=== PATIENT | male | born 1945 | race Caucasian/White ===

== ENCOUNTER 2024-09-26 19:12 | Inpatient (IN) | payer OTHER ==
[~2024-09-26 19:12] MED LIST: Iopamidol 370 76% 100 ML VIAL ONE
[2024-09-26 19:45] LABS: #Basophils 0.10 10x3/uL (0.0-0.2); #Eosinophils 0.06 10x3/uL (0.0-0.7); #Monocytes 0.79 10x3/uL (0.11-0.59); #Neutrophils 17.09 10x3/uL (1.40-6.50); %Basophils 0.4 % (0.0-1.0); %Eosinophils 0.3 % (0.0-10.0); %Lymphocytes 19.0 % (21.0-51.0); %Monocytes 3.4 % (0.0-10.0); %Neutrophils 73.8 % (42.0-75.0); Hematocrit 48.3 % (42.0-52.0); Hemoglobin 16.0 g/dL (14.0-18.0); Mean Corpuscular Hemoglobin 29.9 pg (27.0-31.0); Mean Corpuscular Volume 90.3 fL (78.0-98.0); Platelet Count 193 10x3/uL (130-400); Red Blood Cell (RBC) Count 5.35 mill/uL (4.70-6.10); White Blood Cell (WBC) Count 23.16 10x3/uL (4.8-10.8)
[2024-09-26] MEDS ORDERED: Calcium Chloride 1 GM/10 ML Abboject SYRINGE ONE (19:51)
[2024-09-26] MEDS ORDERED: EPINEPHrine 1 MG/10 ML Abboject SYRINGE ONE (19:51)
[2024-09-26] MEDS ORDERED: KETAMINE 100 MG/ML (5ML VIAL) ONE (19:53)
[2024-09-26] MEDS ORDERED: Tranexamic Acid 1,000 MG/10 ML VIAL ONE (19:53)
[2024-09-26] MEDS ORDERED: Rocuronium Bromide 10 MG/ML (10ML VIAL) ONE (19:53)
[2024-09-26 19:59] LABS: ALT (SGPT) 42 U/L (Less than 45); AST (SGOT) 55 U/L (11-34); Albumin 3.6 g/dL (3.1-4.5); Alkaline Phosphatase 85 U/L (40-110); Anion Gap 19 mmol/L (10-20); BUN (Urea Nitrogen) 14 mg/dL (8.4-25.7); Bilirubin, Total 2.1 mg/dL (0.3-1.2); Calc. Creatinine Clearance 0 mL/min (70-130); Calcium 8.4 mg/dL (7.8-10.44); Carbon Dioxide 13 mmol/L (23-31); Chloride 116 mmol/L (98-107); Globulin 3.0 g/dL (2.4-3.5); Glucose 166 mg/dL (83-110); Lipase 32 U/L (8-78); Potassium 4.0 mmol/L (3.5-5.1); Sodium 144 mmol/L (136-145)
[2024-09-26 20:11] LABS: INR-International Normal Ratio 3.2; Prothrombin Time 33.0 sec (12.0-14.7)
[2024-09-26 20:12] LABS: PTT 69.7 sec (22.9-36.1)
[2024-09-26] MEDS ORDERED: Vasopressin In 0.9 % NaCl 100 ML ONE (20:16)
[2024-09-26 20:32] LABS: Actual Bicarbonate (HCO3a) 16.7 mEq/L (22-28); Analyzer IN Cardio ER; Base Excess (BEa) -9.7 mEq/L (-2.0 to +3.0); CO2 Tension 38.2 mmHg (35.0-45.0); Calcium, Ionized (arterial) 0.81 mmol/L (1.12-1.30); Hematocrit-ABG 41 % (42.0-52.0); Hemoglobin (Hb) 14.0 g/dL (14.0-18.0); O2 Tension (PaO2), arterial 261.4 mmHg (> 70.0); Potassium - ABG Lab 3.60 mmol/L (3.70-5.30); pH, Arterial 7.258 (7.35-7.45)
[2024-09-26] MEDS ORDERED: CEFAZOLIN 2 GM VIAL ONE (20:48)
[2024-09-26] MEDS ORDERED: fentaNYL PF 100 MCG/2 ML SYRINGE ONE (20:56)
[2024-09-26] MEDS ORDERED: MINERAL OIL/WHITE PETROLATUM 3.5 GM TUBE ONE (21:31)
[2024-09-26 21:33] LABS: Bacteria/HPF 1+ HPF (None Seen); CAUTI Indications for Culture Urological Procedure; Glucose, Urine (Dipstick) 70 mg/dL (Negative); Leukocyte Negative Leu/uL (Negative); Protein, Urine (Dipstick) 50 mg/dL (Neg-Trace); RBC/HPF Greater than 50 HPF (0-3); Specific Gravity, Urine 1.024 (1.002-1.036)
[2024-09-26 21:34] LABS: Urine Culture Reflex Yes Yes
[2024-09-26 21:41] LABS: Cocaine Metabolite Screen Negative (Negative); THC/Cannabinoid Screen Negative (Negative); Tricyclic Screen Negative (Negative)
[2024-09-26] MEDS ORDERED: Dextrose 50% Abboject 50 ML SYRINGE SLOW IVP PRN (22:17)
[2024-09-26] MEDS ORDERED: Glucagon 1 MG/ML KIT IM PRN (22:17)
[2024-09-26] MEDS ORDERED: Ventilator Sedation Protocol 1 EACH FS SCH (22:30)
[2024-09-26] MEDS ORDERED: DISCONTINUE PREVIOUS NARCOTIC PAIN MEDICATIONS AND BENZODIAZEPINES FS SCH (22:45)
[2024-09-26] MEDS ORDERED: Fentanyl BOLUS 100 ML IVPB PRN (22:45)
[2024-09-26] MEDS ORDERED: Propofol BOLUS 1,000 MG/100 ML VIAL IV PRN (22:45)
[2024-09-26 23:04] VITALS: BMI 24.0
[2024-09-26] MEDS: Sodium Bicarb 50 MEQ/50 ML Abboject 8.4% SYRINGE IVP SCH (23:11)
[2024-09-27] MEDS: NOREPINEPHRINE 8 MG/250 ML-D5W 250 ML IVPB SCH (00:20)
[2024-09-27] MEDS: NOREPINEPHRINE 8 MG/250 ML-D5W 250 ML ONE (00:45)
[2024-09-27 00:58] LABS: ALT (SGPT) 37 U/L (Less than 45); AST (SGOT) 72 U/L (11-34); Albumin 2.6 g/dL (3.1-4.5); Alkaline Phosphatase 52 U/L (40-110); Anion Gap 13 mmol/L (10-20); BUN (Urea Nitrogen) 17 mg/dL (8.4-25.7); Bilirubin, Total 4.8 mg/dL (0.3-1.2); Calc. Creatinine Clearance 40 mL/min (70-130); Calcium 7.5 mg/dL (7.8-10.44); Carbon Dioxide 21 mmol/L (23-31); Chloride 116 mmol/L (98-107); Globulin 2.0 g/dL (2.4-3.5); Glucose 144 mg/dL (83-110); Potassium 3.2 mmol/L (3.5-5.1); Sodium 147 mmol/L (136-145)
[2024-09-27 01:11] LABS: #Basophils 0.05 10x3/uL (0.0-0.2); #Eosinophils Less than 0.03 10x3/uL (0.0-0.7); #Monocytes 1.84 10x3/uL (0.11-0.59); #Neutrophils 13.80 10x3/uL (1.40-6.50); %Basophils 0.3 % (0.0-1.0); %Eosinophils 0.1 % (0.0-10.0); %Lymphocytes 5.9 % (21.0-51.0); %Monocytes 11.0 % (0.0-10.0); %Neutrophils 82.3 % (42.0-75.0); Hematocrit 36.1 % (42.0-52.0); Hemoglobin 12.4 g/dL (14.0-18.0); Mean Corpuscular Hemoglobin 29.2 pg (27.0-31.0); Mean Corpuscular Volume 84.9 fL (78.0-98.0); Platelet Count 137 10x3/uL (130-400); Red Blood Cell (RBC) Count 4.25 mill/uL (4.70-6.10); White Blood Cell (WBC) Count 16.75 10x3/uL (4.8-10.8)
[2024-09-27] MEDS ORDERED: Potassium Chloride 40 MEQ in Premix 1 BAG IVPB SCH (02:45)
[2024-09-27] MEDS: Albumin 25% 25 GM (100 mL) BOT IVPB SCH ×2 (03:00→05:36)
[2024-09-27] MEDS: Potassium Chloride 20 MEQ in Premix 1 BAG IVPB SCH (03:01)
[2024-09-27 04:36] LABS: ALT (SGPT) 38 U/L (Less than 45); AST (SGOT) 77 U/L (11-34); Albumin 3.4 g/dL (3.1-4.5); Alkaline Phosphatase 51 U/L (40-110); Anion Gap 16 mmol/L (10-20); BUN (Urea Nitrogen) 20 mg/dL (8.4-25.7); Bilirubin, Total 5.8 mg/dL (0.3-1.2); Calc. Creatinine Clearance 36 mL/min (70-130); Calcium 7.7 mg/dL (7.8-10.44); Carbon Dioxide 19 mmol/L (23-31); Chloride 115 mmol/L (98-107); Globulin 1.8 g/dL (2.4-3.5); Glucose 175 mg/dL (83-110); Magnesium 1.7 mg/dL (1.6-2.6); Potassium 3.7 mmol/L (3.5-5.1); Sodium 146 mmol/L (136-145)
[2024-09-27 04:48] LABS: INR-International Normal Ratio 1.3; Prothrombin Time 16.5 sec (12.0-14.7)
[2024-09-27 04:49] LABS: PTT 31.6 sec (22.9-36.1)
[2024-09-27 04:54] LABS: #Basophils Less than 0.03 10x3/uL (0.0-0.2); #Eosinophils Less than 0.03 10x3/uL (0.0-0.7); #Monocytes 1.57 10x3/uL (0.11-0.59); #Neutrophils 13.33 10x3/uL (1.40-6.50); %Basophils 0.1 % (0.0-1.0); %Eosinophils 0.1 % (0.0-10.0); %Lymphocytes 4.6 % (21.0-51.0); %Monocytes 10.0 % (0.0-10.0); %Neutrophils 84.6 % (42.0-75.0); Hematocrit 34.7 % (42.0-52.0); Hemoglobin 12.0 g/dL (14.0-18.0); Mean Corpuscular Hemoglobin 29.8 pg (27.0-31.0); Mean Corpuscular Volume 86.1 fL (78.0-98.0); Platelet Count 127 10x3/uL (130-400); Red Blood Cell (RBC) Count 4.03 mill/uL (4.70-6.10); White Blood Cell (WBC) Count 15.74 10x3/uL (4.8-10.8)
[2024-09-27 07:20] LABS: Actual Bicarbonate (HCO3a) 16.6 mEq/L (22-28); Base Excess (BEa) -6.6 mEq/L (-2.0 to +3.0); CO2 Tension 26.0 mmHg (35.0-45.0); Calcium, Ionized (arterial) 1.00 mmol/L (1.12-1.30); Hematocrit-ABG 30 % (42.0-52.0); Hemoglobin (Hb) 10.2 g/dL (14.0-18.0); O2 Tension (PaO2), arterial 85.9 mmHg (> 70.0); Potassium - ABG Lab 3.85 mmol/L (3.70-5.30); pH, Arterial 7.422 (7.35-7.45)
[2024-09-27 07:25] LABS: Puncture Site ARTLINE
[2024-09-27 07:27] LABS: ALV-art Gradient 166.800 mmHg (0-20)
[2024-09-27] MEDS: Vasopressin In 0.9 % NaCl 100 ML IV SCH (08:53)
[2024-09-27] MEDS: Magnesium 2 GM/50 ML(in water) 2 GM in Premix 1 BAG IVPB SCH (08:54)
[2024-09-27] MEDS: Pantoprazole 40 MG VIAL IVP SCH (08:54)
[2024-09-28 06:13] LABS: #Basophils Less than 0.03 10x3/uL (0.0-0.2); #Eosinophils Less than 0.03 10x3/uL (0.0-0.7); #Monocytes 0.42 10x3/uL (0.11-0.59); #Neutrophils 5.48 10x3/uL (1.40-6.50); %Basophils 0.3 % (0.0-1.0); %Eosinophils 0.1 % (0.0-10.0); %Lymphocytes 11.0 % (21.0-51.0); %Monocytes 6.3 % (0.0-10.0); %Neutrophils 81.9 % (42.0-75.0); Hematocrit 31.1 % (42.0-52.0); Hemoglobin 10.2 g/dL (14.0-18.0); Mean Corpuscular Hemoglobin 28.7 pg (27.0-31.0); Mean Corpuscular Volume 87.6 fL (78.0-98.0); Platelet Count 66 10x3/uL (130-400); Red Blood Cell (RBC) Count 3.55 mill/uL (4.70-6.10); White Blood Cell (WBC) Count 6.70 10x3/uL (4.8-10.8)
[2024-09-28 06:23] LABS: Anion Gap 14 mmol/L (10-20); BUN (Urea Nitrogen) 26 mg/dL (8.4-25.7); Calc. Creatinine Clearance 39 mL/min (70-130); Calcium 7.9 mg/dL (7.8-10.44); Carbon Dioxide 23 mmol/L (23-31); Chloride 113 mmol/L (98-107); Glucose 126 mg/dL (83-110); Potassium 4.1 mmol/L (3.5-5.1); Sodium 146 mmol/L (136-145)
[2024-09-28 07:16] LABS: Burr Cells SLIGHT = 2-5 cells HPF (0-1); Nucleated RBC (Manual Ct) 1 % (0); Platelet Adequacy Comment Platelets Decreased; Polychromasia SLIGHT = 2-3 cells HPF (0-2); Schistocytes SLIGHT = 2-5 cells HPF (0-1)
[2024-09-28] MEDS ORDERED: Iopamidol-370 76% 500 ML MDV (1 ML CHARGE) ONE (10:18)
[2024-09-28] MEDS ORDERED: Rocuronium Bromide 10 MG/ML (10ML VIAL) ONE ×2 (11:39)
[2024-09-28] MEDS ORDERED: Bupivacaine 0.25% HCL 30 ML VIAL ONE (11:41)
[2024-09-28 13:14] LABS: ALT (SGPT) 19 U/L (Less than 45); AST (SGOT) 56 U/L (11-34); Albumin 4.0 g/dL (3.1-4.5); Alkaline Phosphatase 37 U/L (40-110); Bilirubin, Direct 1.2 mg/dL (0.1-0.3); Bilirubin, Total 6.0 mg/dL (0.3-1.2)
[2024-09-28 13:52] LABS: INR-International Normal Ratio 1.8; Prothrombin Time 20.8 sec (12.0-14.7)
[2024-09-28 13:53] LABS: PTT 44.8 sec (22.9-36.1)
[2024-09-28 13:58] LABS: Fibrinogen 459 mg/dL (253-463); Fibrinogen 470.0 mg/dL (253-463); INR-International Normal Ratio 1.8; Prothrombin Time 20.6 sec (12.0-14.7)
[2024-09-28 13:59] LABS: D-Dimer Test 3.92 mcg/mL (0.27-0.43)
[2024-09-28 14:15] LABS: Platelet Count 66 10x3/uL (130-400)
[2024-09-28] MEDS ORDERED: Electrolyte Replacement Protocol 1 EACH FS PRN (16:00)
[2024-09-28 16:30] LABS: Osmolality, Urine 483 mOsm/kg (50-1200)
[2024-09-28 20:34] LABS: Hematocrit 25.6 % (42.0-52.0); Hemoglobin 8.0 g/dL (14.0-18.0); Mean Corpuscular Hemoglobin 29.2 pg (27.0-31.0); Mean Corpuscular Volume 93.4 fL (78.0-98.0); Platelet Count 90 10x3/uL (130-400); Red Blood Cell (RBC) Count 2.74 mill/uL (4.70-6.10); White Blood Cell (WBC) Count 6.20 10x3/uL (4.8-10.8)
[2024-09-28 21:42] LABS: Burr Cells MODERATE= 6-15 cells HPF (0-1); Platelet Adequacy Comment Platelets Decreased; Polychromasia SLIGHT = 2-3 cells HPF (0-2); Smudge Cells 3.0 %; Toxic Granulation SLIGHT
[2024-09-29 05:12] LABS: Hematocrit 23.8 % (42.0-52.0); Hemoglobin 7.7 g/dL (14.0-18.0); Mean Corpuscular Hemoglobin 29.3 pg (27.0-31.0); Mean Corpuscular Volume 90.5 fL (78.0-98.0); Platelet Count 86 10x3/uL (130-400); Red Blood Cell (RBC) Count 2.63 mill/uL (4.70-6.10); White Blood Cell (WBC) Count 5.30 10x3/uL (4.8-10.8)
[2024-09-29 05:18] LABS: ALT (SGPT) 9 U/L (Less than 45); AST (SGOT) 42 U/L (11-34); Albumin 3.1 g/dL (3.1-4.5); Alkaline Phosphatase 34 U/L (40-110); Anion Gap 13 mmol/L (10-20); BUN (Urea Nitrogen) 37 mg/dL (8.4-25.7); Bilirubin, Total 5.6 mg/dL (0.3-1.2); Calc. Creatinine Clearance 39 mL/min (70-130); Calcium 7.7 mg/dL (7.8-10.44); Carbon Dioxide 24 mmol/L (23-31); Chloride 112 mmol/L (98-107); Globulin 2.0 g/dL (2.4-3.5); Glucose 95 mg/dL (83-110); Potassium 4.0 mmol/L (3.5-5.1); Sodium 145 mmol/L (136-145)
[2024-09-29 05:44] LABS: Platelet Adequacy Comment Platelets Decreased; RBC Morphology Within Normal Limits; Smudge Cells 1.0 %
[2024-09-29 07:13] LABS: Actual Bicarbonate (HCO3a) 23.1 mEq/L (22-28); Base Excess (BEa) -1.4 mEq/L (-2.0 to +3.0); CO2 Tension 37.2 mmHg (35.0-45.0); Calcium, Ionized (arterial) 1.07 mmol/L (1.12-1.30); Hematocrit-ABG 26 % (42.0-52.0); Hemoglobin (Hb) 8.7 g/dL (14.0-18.0); O2 Tension (PaO2), arterial 61.9 mmHg (> 70.0); Potassium - ABG Lab 4.05 mmol/L (3.70-5.30); pH, Arterial 7.410 (7.35-7.45)
[2024-09-29 07:15] LABS: ALV-art Gradient 176.800 mmHg (0-20); Puncture Site Right Radial artery
[2024-09-29 09:07] LABS: INR-International Normal Ratio 1.7; Prothrombin Time 20.2 sec (12.0-14.7)
[2024-09-29 09:08] LABS: PTT 40.3 sec (22.9-36.1)
[2024-09-29] MEDS ORDERED: fentaNYL PF 100 MCG/2 ML SYRINGE ONE (10:03)
[2024-09-29] MEDS ORDERED: Rocuronium Bromide 10 MG/ML (10ML VIAL) ONE (10:06)
[2024-09-29] MEDS ORDERED: Ondansetron PF 4 MG/2 ML Vial ONE (10:06)
[2024-09-29] MEDS ORDERED: PROPOFOL 20 ML ONE (10:08)
[2024-09-29] MEDS ORDERED: PHENYLEPHRINE-NS 100 MCG/ML 10 ML SYRINGE ONE ×2 (11:28→12:25)
[2024-09-29 21:49] LABS: Hematocrit 24.9 % (42.0-52.0); Hemoglobin 8.1 g/dL (14.0-18.0); Mean Corpuscular Hemoglobin 29.3 pg (27.0-31.0); Mean Corpuscular Volume 90.2 fL (78.0-98.0); Platelet Count 113 10x3/uL (130-400); Red Blood Cell (RBC) Count 2.76 mill/uL (4.70-6.10); White Blood Cell (WBC) Count 5.29 10x3/uL (4.8-10.8)
[2024-09-29 22:24] LABS: Dohle Bodies SLIGHT; Macrocytosis SLIGHT = 6-15 cells HPF (0-5); Platelet Adequacy Comment Platelets Decreased; Poikilocytosis SLIGHT = 6-15 cells HPF (0-5); Polychromasia SLIGHT = 2-3 cells HPF (0-2)
[2024-09-30 05:02] LABS: Hematocrit 24.3 % (42.0-52.0); Hemoglobin 7.8 g/dL (14.0-18.0); Mean Corpuscular Hemoglobin 29.1 pg (27.0-31.0); Mean Corpuscular Volume 90.7 fL (78.0-98.0); Platelet Count 106 10x3/uL (130-400); Red Blood Cell (RBC) Count 2.68 mill/uL (4.70-6.10); White Blood Cell (WBC) Count 5.82 10x3/uL (4.8-10.8)
[2024-09-30 05:16] LABS: ALT (SGPT) 9 U/L (Less than 45); AST (SGOT) 38 U/L (11-34); Albumin 2.5 g/dL (3.1-4.5); Alkaline Phosphatase 36 U/L (40-110); Anion Gap 13 mmol/L (10-20); BUN (Urea Nitrogen) 38 mg/dL (8.4-25.7); Bilirubin, Total 5.8 mg/dL (0.3-1.2); Calc. Creatinine Clearance 45 mL/min (70-130); Calcium 7.6 mg/dL (7.8-10.44); Carbon Dioxide 24 mmol/L (23-31); Chloride 112 mmol/L (98-107); Globulin 2.4 g/dL (2.4-3.5); Glucose 120 mg/dL (83-110); Potassium 4.1 mmol/L (3.5-5.1); Sodium 145 mmol/L (136-145)
[2024-09-30 05:46] LABS: Anisocytosis SLIGHT = 6-15 cells HPF (0-5); Burr Cells SLIGHT = 2-5 cells HPF (0-1); Macrocytosis SLIGHT = 6-15 cells HPF (0-5); Platelet Adequacy Comment Platelets Decreased; Polychromasia SLIGHT = 2-3 cells HPF (0-2)
[2024-09-30] MEDS: Heparin 5,000 UNITS/ML VIAL SC SCH (11:54)
[2024-10-01 05:05] LABS: ALT (SGPT) 10 U/L (Less than 45); AST (SGOT) 39 U/L (11-34); Albumin 2.3 g/dL (3.1-4.5); Alkaline Phosphatase 43 U/L (40-110); Anion Gap 17 mmol/L (10-20); BUN (Urea Nitrogen) 47 mg/dL (8.4-25.7); Bilirubin, Total 6.5 mg/dL (0.3-1.2); Calc. Creatinine Clearance 48 mL/min (70-130); Calcium 7.7 mg/dL (7.8-10.44); Carbon Dioxide 23 mmol/L (23-31); Chloride 113 mmol/L (98-107); Globulin 2.7 g/dL (2.4-3.5); Glucose 119 mg/dL (83-110); Potassium 4.0 mmol/L (3.5-5.1); Sodium 149 mmol/L (136-145)
[2024-10-01 05:07] LABS: Hematocrit 23.9 % (42.0-52.0); Hemoglobin 7.8 g/dL (14.0-18.0); Mean Corpuscular Hemoglobin 29.5 pg (27.0-31.0); Mean Corpuscular Volume 90.5 fL (78.0-98.0); Platelet Count 128 10x3/uL (130-400); Red Blood Cell (RBC) Count 2.64 mill/uL (4.70-6.10); White Blood Cell (WBC) Count 7.85 10x3/uL (4.8-10.8)
[2024-10-01 05:45] LABS: Nucleated RBC (Manual Ct) 1 % (0); Platelet Adequacy Comment Platelets Decreased; RBC Morphology Within Normal Limits; Smudge Cells 1.9 %
[2024-10-01] MEDS: Albumin 25% 25 GM (100 mL) BOT IVPB SCH (09:45)
[2024-10-01] MEDS: hydrALAZINE 20 MG/ML VIAL SLOW IVP PRN (09:46)
[2024-10-01] MEDS: Furosemide 40 MG (4 mL) VIAL SLOW IVP SCH (10:41)
[2024-10-01] MEDS: Magnesium 2 GM/50 ML(in water) 2 GM in Premix 1 BAG IVPB SCH (11:08)
[2024-10-01 15:31] LABS: Anion Gap 17 mmol/L (10-20); BUN (Urea Nitrogen) 50 mg/dL (8.4-25.7); Calc. Creatinine Clearance 44 mL/min (70-130); Calcium 7.8 mg/dL (7.8-10.44); Carbon Dioxide 26 mmol/L (23-31); Chloride 111 mmol/L (98-107); Glucose 126 mg/dL (83-110); Potassium 3.9 mmol/L (3.5-5.1); Sodium 150 mmol/L (136-145)
[2024-10-02 04:28] LABS: Hematocrit 22.3 % (42.0-52.0); Hemoglobin 7.1 g/dL (14.0-18.0); Mean Corpuscular Hemoglobin 28.9 pg (27.0-31.0); Mean Corpuscular Volume 90.7 fL (78.0-98.0); Platelet Count 127 10x3/uL (130-400); Red Blood Cell (RBC) Count 2.46 mill/uL (4.70-6.10); White Blood Cell (WBC) Count 7.04 10x3/uL (4.8-10.8)
[2024-10-02 04:51] LABS: ALT (SGPT) 10 U/L (Less than 45); AST (SGOT) 38 U/L (11-34); Albumin 2.9 g/dL (3.1-4.5); Alkaline Phosphatase 41 U/L (40-110); Anion Gap 14 mmol/L (10-20); BUN (Urea Nitrogen) 51 mg/dL (8.4-25.7); Bilirubin, Total 7.5 mg/dL (0.3-1.2); Calc. Creatinine Clearance 44 mL/min (70-130); Calcium 7.8 mg/dL (7.8-10.44); Carbon Dioxide 26 mmol/L (23-31); Chloride 112 mmol/L (98-107); Globulin 2.5 g/dL (2.4-3.5); Glucose 119 mg/dL (83-110); Potassium 3.8 mmol/L (3.5-5.1); Sodium 148 mmol/L (136-145)
[2024-10-02 04:52] LABS: Anisocytosis SLIGHT = 6-15 cells HPF (0-5); Nucleated RBC (Manual Ct) 1 % (0); Platelet Adequacy Comment Platelets Decreased; Polychromasia SLIGHT = 2-3 cells HPF (0-2)
[2024-10-02] MEDS: Heparin 5,000 UNITS/ML VIAL SC SCH (10:55)
[2024-10-02 18:41] LABS: Hematocrit 25.8 % (42.0-52.0); Hemoglobin 8.4 g/dL (14.0-18.0)
[2024-10-03 04:29] LABS: Hematocrit 27.8 % (42.0-52.0); Hemoglobin 9.1 g/dL (14.0-18.0); Mean Corpuscular Hemoglobin 28.9 pg (27.0-31.0); Mean Corpuscular Volume 88.3 fL (78.0-98.0); Platelet Count 147 10x3/uL (130-400); Red Blood Cell (RBC) Count 3.15 mill/uL (4.70-6.10); White Blood Cell (WBC) Count 10.97 10x3/uL (4.8-10.8)
[2024-10-03 04:45] LABS: ALT (SGPT) 15 U/L (Less than 45); AST (SGOT) 46 U/L (11-34); Albumin 2.7 g/dL (3.1-4.5); Alkaline Phosphatase 63 U/L (40-110); Anion Gap 16 mmol/L (10-20); BUN (Urea Nitrogen) 44 mg/dL (8.4-25.7); Bilirubin, Total 9.0 mg/dL (0.3-1.2); Calc. Creatinine Clearance 52 mL/min (70-130); Calcium 7.5 mg/dL (7.8-10.44); Carbon Dioxide 24 mmol/L (23-31); Chloride 116 mmol/L (98-107); Globulin 2.5 g/dL (2.4-3.5); Glucose 119 mg/dL (83-110); Potassium 3.6 mmol/L (3.5-5.1); Sodium 152 mmol/L (136-145)
[2024-10-03 05:06] LABS: Nucleated RBC (Manual Ct) 2 % (0); Platelet Adequacy Comment Platelets Normal; Polychromasia SLIGHT = 2-3 cells HPF (0-2); Smudge Cells 7.0 %
[2024-10-03] MEDS: Ondansetron PF 4 MG/2 ML Vial IVP PRN (16:00)
[2024-10-03] MEDS: Acetaminophen 325 MG TAB PO PRN (16:07)
[2024-10-03] MEDS: NOREPINEPHRINE 8 MG/250 ML-D5W 250 ML IVPB SCH (19:24)
[2024-10-04 00:20] LABS: #Basophils 0.09 10x3/uL (0.0-0.2); #Eosinophils Less than 0.03 10x3/uL (0.0-0.7); #Monocytes 1.21 10x3/uL (0.11-0.59); #Neutrophils 17.40 10x3/uL (1.40-6.50); %Basophils 0.4 % (0.0-1.0); %Eosinophils 0.0 % (0.0-10.0); %Lymphocytes 3.9 % (21.0-51.0); %Monocytes 5.9 % (0.0-10.0); %Neutrophils 85.4 % (42.0-75.0); Hematocrit 33.1 % (42.0-52.0); Hemoglobin 10.6 g/dL (14.0-18.0); Mean Corpuscular Hemoglobin 28.5 pg (27.0-31.0); Mean Corpuscular Volume 89.0 fL (78.0-98.0); Platelet Count 233 10x3/uL (130-400); Red Blood Cell (RBC) Count 3.72 mill/uL (4.70-6.10); White Blood Cell (WBC) Count 20.40 10x3/uL (4.8-10.8)
[2024-10-04] MEDS: D5 LR w/20 mEq KCL 1,000 ML IV SCH (00:41)
[2024-10-04 00:43] LABS: ALT (SGPT) 22 U/L (Less than 45); AST (SGOT) 62 U/L (11-34); Albumin 2.3 g/dL (3.1-4.5); Alkaline Phosphatase 70 U/L (40-110); Anion Gap 21 mmol/L (10-20); BUN (Urea Nitrogen) 71 mg/dL (8.4-25.7); Bilirubin, Total 10.0 mg/dL (0.3-1.2); Calc. Creatinine Clearance 34 mL/min (70-130); Calcium 7.5 mg/dL (7.8-10.44); Carbon Dioxide 21 mmol/L (23-31); Chloride 114 mmol/L (98-107); Globulin 3.1 g/dL (2.4-3.5); Glucose 154 mg/dL (83-110); Potassium 4.6 mmol/L (3.5-5.1); Sodium 151 mmol/L (136-145)
[2024-10-04] MEDS: Vasopressin In 0.9 % NaCl 40 UNIT in Premix 1 BAG IV SCH (01:53)
[2024-10-04] MEDS: Vasopressin In 0.9 % NaCl 100 ML ONE (01:53)
[2024-10-04 04:41] LABS: Hematocrit 30.8 % (42.0-52.0); Hemoglobin 9.9 g/dL (14.0-18.0); Mean Corpuscular Hemoglobin 28.4 pg (27.0-31.0); Mean Corpuscular Volume 88.3 fL (78.0-98.0); Platelet Count 176 10x3/uL (130-400); Red Blood Cell (RBC) Count 3.49 mill/uL (4.70-6.10); White Blood Cell (WBC) Count 19.14 10x3/uL (4.8-10.8)
[2024-10-04 05:02] LABS: ALT (SGPT) 22 U/L (Less than 45); AST (SGOT) 60 U/L (11-34); Albumin 2.1 g/dL (3.1-4.5); Alkaline Phosphatase 62 U/L (40-110); Anion Gap 18 mmol/L (10-20); BUN (Urea Nitrogen) 71 mg/dL (8.4-25.7); Bilirubin, Total 9.8 mg/dL (0.3-1.2); Calc. Creatinine Clearance 36 mL/min (70-130); Calcium 7.2 mg/dL (7.8-10.44); Carbon Dioxide 21 mmol/L (23-31); Chloride 114 mmol/L (98-107); Globulin 2.7 g/dL (2.4-3.5); Glucose 184 mg/dL (83-110); Potassium 4.6 mmol/L (3.5-5.1); Sodium 148 mmol/L (136-145)
[2024-10-04 05:09] LABS: Anisocytosis SLIGHT = 6-15 cells HPF (0-5); Platelet Adequacy Comment Platelets Normal; Polychromasia SLIGHT = 2-3 cells HPF (0-2)
[2024-10-04] MEDS: Pantoprazole 40 MG VIAL IVP SCH (09:43)
[2024-10-04] MEDS: Albumin 25% 25 GM (100 mL) BOT IVPB SCH (11:33)
[2024-10-05 05:09] LABS: ALT (SGPT) 13 U/L (Less than 45); AST (SGOT) 31 U/L (11-34); Albumin 3.4 g/dL (3.1-4.5); Alkaline Phosphatase 39 U/L (40-110); Anion Gap 19 mmol/L (10-20); BUN (Urea Nitrogen) 75 mg/dL (8.4-25.7); Bilirubin, Total 9.1 mg/dL (0.3-1.2); Calc. Creatinine Clearance 33 mL/min (70-130); Calcium 6.6 mg/dL (7.8-10.44); Carbon Dioxide 19 mmol/L (23-31); Chloride 110 mmol/L (98-107); Globulin 2.1 g/dL (2.4-3.5); Glucose 217 mg/dL (83-110); Potassium 4.0 mmol/L (3.5-5.1); Sodium 144 mmol/L (136-145)
[2024-10-05] MEDS: Calcium Chloride 1 GM/10 ML Abboject SYRINGE IVP SCH (06:37)
[2024-10-05 08:40] LABS: #Basophils Less than 0.03 10x3/uL (0.0-0.2); #Eosinophils 0.09 10x3/uL (0.0-0.7); #Monocytes 0.45 10x3/uL (0.11-0.59); #Neutrophils 8.34 10x3/uL (1.40-6.50); %Basophils 0.2 % (0.0-1.0); %Eosinophils 0.9 % (0.0-10.0); %Lymphocytes 7.6 % (21.0-51.0); %Monocytes 4.6 % (0.0-10.0); %Neutrophils 85.1 % (42.0-75.0); Hematocrit 22.1 % (42.0-52.0); Hemoglobin 7.3 g/dL (14.0-18.0); Mean Corpuscular Hemoglobin 29.6 pg (27.0-31.0); Mean Corpuscular Volume 89.5 fL (78.0-98.0); Platelet Count 122 10x3/uL (130-400); Red Blood Cell (RBC) Count 2.47 mill/uL (4.70-6.10); White Blood Cell (WBC) Count 9.80 10x3/uL (4.8-10.8)
[2024-10-05 10:40] LABS: Anisocytosis SLIGHT = 6-15 cells HPF (0-5); Burr Cells MODERATE= 6-15 cells HPF (0-1); Platelet Adequacy Comment Platelets Decreased; Polychromasia SLIGHT = 2-3 cells HPF (0-2); Schistocytes SLIGHT = 2-5 cells HPF (0-1); Smudge Cells 1.0 %; Toxic Granulation SLIGHT
[2024-10-06 04:22] LABS: #Basophils 0.04 10x3/uL (0.0-0.2); #Eosinophils 0.11 10x3/uL (0.0-0.7); #Monocytes 0.51 10x3/uL (0.11-0.59); #Neutrophils 11.36 10x3/uL (1.40-6.50); %Basophils 0.3 % (0.0-1.0); %Eosinophils 0.9 % (0.0-10.0); %Lymphocytes 3.7 % (21.0-51.0); %Monocytes 4.0 % (0.0-10.0); %Neutrophils 89.2 % (42.0-75.0); Hematocrit 25.7 % (42.0-52.0); Hemoglobin 8.1 g/dL (14.0-18.0); Mean Corpuscular Hemoglobin 28.7 pg (27.0-31.0); Mean Corpuscular Volume 91.1 fL (78.0-98.0); Platelet Count 140 10x3/uL (130-400); Red Blood Cell (RBC) Count 2.82 mill/uL (4.70-6.10); White Blood Cell (WBC) Count 12.73 10x3/uL (4.8-10.8)
[2024-10-06 04:46] LABS: ALT (SGPT) 13 U/L (Less than 45); AST (SGOT) 39 U/L (11-34); Albumin 2.6 g/dL (3.1-4.5); Alkaline Phosphatase 54 U/L (40-110); Anion Gap 16 mmol/L (10-20); BUN (Urea Nitrogen) 80 mg/dL (8.4-25.7); Bilirubin, Total 10.2 mg/dL (0.3-1.2); Calc. Creatinine Clearance 32 mL/min (70-130); Calcium 7.5 mg/dL (7.8-10.44); Carbon Dioxide 22 mmol/L (23-31); Chloride 114 mmol/L (98-107); Globulin 2.4 g/dL (2.4-3.5); Glucose 126 mg/dL (83-110); Potassium 4.0 mmol/L (3.5-5.1); Sodium 148 mmol/L (136-145)
[2024-10-06] MEDS ORDERED: MD-Gastroview 120 ML BOT ONE (11:25)
[2024-10-06] MEDS: Midazolam In 0.9 % NaCl/PF 100 ML IVPB SCH (15:32)
[2024-10-07 04:22] LABS: #Basophils Less than 0.03 10x3/uL (0.0-0.2); #Eosinophils 0.06 10x3/uL (0.0-0.7); #Monocytes 0.52 10x3/uL (0.11-0.59); #Neutrophils 10.16 10x3/uL (1.40-6.50); %Basophils 0.2 % (0.0-1.0); %Eosinophils 0.5 % (0.0-10.0); %Lymphocytes 4.7 % (21.0-51.0); %Monocytes 4.5 % (0.0-10.0); %Neutrophils 88.6 % (42.0-75.0); Hematocrit 25.8 % (42.0-52.0); Hemoglobin 8.5 g/dL (14.0-18.0); Mean Corpuscular Hemoglobin 29.3 pg (27.0-31.0); Mean Corpuscular Volume 89.0 fL (78.0-98.0); Platelet Count 187 10x3/uL (130-400); Red Blood Cell (RBC) Count 2.90 mill/uL (4.70-6.10); White Blood Cell (WBC) Count 11.47 10x3/uL (4.8-10.8)
[2024-10-07 04:40] LABS: ALT (SGPT) 31 U/L (Less than 45); AST (SGOT) 78 U/L (11-34); Albumin 2.1 g/dL (3.1-4.5); Alkaline Phosphatase 58 U/L (40-110); Anion Gap 16 mmol/L (10-20); BUN (Urea Nitrogen) 76 mg/dL (8.4-25.7); Bilirubin, Total 11.1 mg/dL (0.3-1.2); Calc. Creatinine Clearance 34 mL/min (70-130); Calcium 7.4 mg/dL (7.8-10.44); Carbon Dioxide 21 mmol/L (23-31); Chloride 119 mmol/L (98-107); Globulin 2.7 g/dL (2.4-3.5); Glucose 112 mg/dL (83-110); Potassium 3.8 mmol/L (3.5-5.1); Sodium 152 mmol/L (136-145)
[2024-10-07] MEDS ORDERED: Fentanyl BOLUS 100 ML IVPB PRN (06:09)
[2024-10-07 06:52] VITALS: BP 83/59
[2024-10-07] MEDS ORDERED: fentaNYL PF 100 MCG/2 ML SYRINGE ONE (11:44)
[2024-10-07] MEDS ORDERED: Rocuronium Bromide 10 MG/ML (10ML VIAL) ONE (11:44)
[2024-10-07] MEDS ORDERED: Bupivacaine 0.25% HCL 30 ML VIAL ONE (12:09)
[2024-10-07 13:33] LABS: INR-International Normal Ratio 1.3; PTT 34.9 sec (22.9-36.1); Prothrombin Time 16.1 sec (12.0-14.7)
[2024-10-07] MEDS ORDERED: Phenylephrine 40 MG/NS 250 ML 250 ML ONE (15:15)
[2024-10-07 17:22] VITALS: BMI 27.3
[2024-10-07] MEDS: Metoclopramide HCl 10 MG (2 mL) VIAL IVP SCH (21:03)
[2024-10-08] MEDS: Albumin 25% 25 GM (100 mL) BOT IVPB SCH (00:33)
[2024-10-08] MEDS: Phenylephrine 40 MG/NS 250 ML 40 MG in Premix 1 BAG IVPB SCH (02:28)
[2024-10-08 05:07] LABS: #Basophils 0.07 10x3/uL (0.0-0.2); #Eosinophils Less than 0.03 10x3/uL (0.0-0.7); #Monocytes 1.20 10x3/uL (0.11-0.59); #Neutrophils 15.95 10x3/uL (1.40-6.50); %Basophils 0.4 % (0.0-1.0); %Eosinophils 0.1 % (0.0-10.0); %Lymphocytes 6.6 % (21.0-51.0); %Monocytes 6.2 % (0.0-10.0); %Neutrophils 82.7 % (42.0-75.0); Hematocrit 28.5 % (42.0-52.0); Hemoglobin 8.6 g/dL (14.0-18.0); Mean Corpuscular Hemoglobin 28.7 pg (27.0-31.0); Mean Corpuscular Volume 95.0 fL (78.0-98.0); Platelet Count 334 10x3/uL (130-400); Red Blood Cell (RBC) Count 3.00 mill/uL (4.70-6.10); White Blood Cell (WBC) Count 19.28 10x3/uL (4.8-10.8)
[2024-10-08 05:46] LABS: ALT (SGPT) 51 U/L (Less than 45); AST (SGOT) 93 U/L (11-34); Albumin 2.5 g/dL (3.1-4.5); Alkaline Phosphatase 74 U/L (40-110); Anion Gap 17 mmol/L (10-20); BUN (Urea Nitrogen) 74 mg/dL (8.4-25.7); Bilirubin, Total 11.8 mg/dL (0.3-1.2); Calc. Creatinine Clearance 30 mL/min (70-130); Calcium 7.2 mg/dL (7.8-10.44); Carbon Dioxide 20 mmol/L (23-31); Chloride 120 mmol/L (98-107); Globulin 2.6 g/dL (2.4-3.5); Glucose 140 mg/dL (83-110); Potassium 4.5 mmol/L (3.5-5.1); Sodium 152 mmol/L (136-145)
[2024-10-08] MEDS: Heparin 5,000 UNITS/ML VIAL SC SCH (08:42)
[2024-10-08 14:21] LABS: ALT (SGPT) 51 U/L (Less than 45); AST (SGOT) 98 U/L (11-34); Albumin 2.2 g/dL (3.1-4.5); Alkaline Phosphatase 72 U/L (40-110); Bilirubin, Direct 8.0 mg/dL (0.1-0.3); Bilirubin, Total 10.8 mg/dL (0.3-1.2)
[2024-10-08 14:23] LABS: #Basophils Less than 0.03 10x3/uL (0.0-0.2); #Eosinophils 0.03 10x3/uL (0.0-0.7); #Monocytes 0.72 10x3/uL (0.11-0.59); #Neutrophils 8.25 10x3/uL (1.40-6.50); %Basophils 0.1 % (0.0-1.0); %Eosinophils 0.3 % (0.0-10.0); %Lymphocytes 6.4 % (21.0-51.0); %Monocytes 7.1 % (0.0-10.0); %Neutrophils 81.5 % (42.0-75.0); Hematocrit 24.0 % (42.0-52.0); Hemoglobin 7.6 g/dL (14.0-18.0); Mean Corpuscular Hemoglobin 29.0 pg (27.0-31.0); Mean Corpuscular Volume 91.6 fL (78.0-98.0); Platelet Count 172 10x3/uL (130-400); Red Blood Cell (RBC) Count 2.62 mill/uL (4.70-6.10); White Blood Cell (WBC) Count 10.13 10x3/uL (4.8-10.8)
[2024-10-08] MEDS: Heparin 10,000 UNITS/ 10 ML VIAL SLOW IVP SCH (14:57)
[2024-10-08] MEDS: Metoprolol Tartrate 5 MG (5 mL) VIAL IVP SCH (23:01)
[2024-10-08] MEDS: Metoprolol Tartrate 5 MG (5 mL) VIAL ONE (23:25)
[2024-10-09 04:25] LABS: #Basophils 0.03 10x3/uL (0.0-0.2); #Eosinophils 0.03 10x3/uL (0.0-0.7); #Monocytes 0.95 10x3/uL (0.11-0.59); #Neutrophils 9.73 10x3/uL (1.40-6.50); %Basophils 0.3 % (0.0-1.0); %Eosinophils 0.3 % (0.0-10.0); %Lymphocytes 5.2 % (21.0-51.0); %Monocytes 8.0 % (0.0-10.0); %Neutrophils 81.9 % (42.0-75.0); Hematocrit 26.3 % (42.0-52.0); Hemoglobin 8.5 g/dL (14.0-18.0); Mean Corpuscular Hemoglobin 28.7 pg (27.0-31.0); Mean Corpuscular Volume 88.9 fL (78.0-98.0); Platelet Count 212 10x3/uL (130-400); Red Blood Cell (RBC) Count 2.96 mill/uL (4.70-6.10); White Blood Cell (WBC) Count 11.87 10x3/uL (4.8-10.8)
[2024-10-09 05:10] LABS: ALT (SGPT) 68 U/L (Less than 45); AST (SGOT) 139 U/L (11-34); Albumin 2.0 g/dL (3.1-4.5); Alkaline Phosphatase 129 U/L (40-110); Anion Gap 21 mmol/L (10-20); BUN (Urea Nitrogen) 75 mg/dL (8.4-25.7); Bilirubin, Total 10.9 mg/dL (0.3-1.2); Calc. Creatinine Clearance 27 mL/min (70-130); Calcium 7.1 mg/dL (7.8-10.44); Carbon Dioxide 15 mmol/L (23-31); Chloride 119 mmol/L (98-107); Globulin 3.0 g/dL (2.4-3.5); Glucose 80 mg/dL (83-110); Potassium 3.9 mmol/L (3.5-5.1); Sodium 151 mmol/L (136-145)
[2024-10-09] MEDS: Metoprolol Tartrate 5 MG (5 mL) VIAL IVP SCH (06:16)
[2024-10-09] MEDS: Metoprolol Tartrate 5 MG (5 mL) VIAL ONE (06:25)
[2024-10-09] MEDS: Glycopyrrolate 0.4 MG/ 2 ML VIAL SLOW IVP PRN (17:41)
[2024-10-09] MEDS: Albumin 25% 25 GM (100 mL) BOT IVPB SCH ×2 (17:44→21:34)
[2024-10-09 18:08] VITALS: TEMP 99.5
== END 2024-10-10 10:44 | disposition expired | DRG 3 ==
LOC: ERS 19:12 → SDC/OP 21:03 → CCU 22:40
PROVIDERS: ADMIT Surgery; ATTEND Surgery
PROC: 4A13XR1 Monitoring of Arterial Saturation, Peripheral, External Approach (ICD-10-PCS; principal; 2024-09-26)
PROC: 0BH17EZ Insertion of Endotracheal Airway into Trachea, Via Natural or Artificial Opening (ICD-10-PCS; 2024-09-26)
PROC: 0DBB0ZZ Excision of Ileum, Open Approach (ICD-10-PCS; 2024-09-26)
PROC: 5A1955Z Respiratory Ventilation, Greater than 96 Consecutive Hours (ICD-10-PCS; 2024-09-26)
PROC: 0T9B30Z Drainage of Bladder with Drainage Device, Percutaneous Approach (ICD-10-PCS; 2024-09-26)
PROC: 30233L1 Transfusion of Nonautologous Fresh Plasma into Peripheral Vein, Percutaneous Approach (ICD-10-PCS; 2024-09-26)
PROC: 30233J1 Transfusion of Nonautologous Serum Albumin into Peripheral Vein, Percutaneous Approach (ICD-10-PCS; 2024-09-26)
PROC: 30233N1 Transfusion of Nonautologous Red Blood Cells into Peripheral Vein, Percutaneous Approach (ICD-10-PCS; 2024-09-26)
PROC: 30233R1 Transfusion of Nonautologous Platelets into Peripheral Vein, Percutaneous Approach (ICD-10-PCS; 2024-09-26)
PROC: 03HY32Z Insertion of Monitoring Device into Upper Artery, Percutaneous Approach (ICD-10-PCS; 2024-09-26)
PROC: 4A133B1 Monitoring of Arterial Pressure, Peripheral, Percutaneous Approach (ICD-10-PCS; 2024-09-26)
PROC: 4A133J1 Monitoring of Arterial Pulse, Peripheral, Percutaneous Approach (ICD-10-PCS; 2024-09-26)
PROC: 0D9670Z Drainage of Stomach with Drainage Device, Via Natural or Artificial Opening (ICD-10-PCS; 2024-09-26)
PROC: 3E033XZ Introduction of Vasopressor into Peripheral Vein, Percutaneous Approach (ICD-10-PCS; 2024-09-26)
PROC: 6A551Z2 Pheresis of Platelets, Multiple (ICD-10-PCS; 2024-09-28)
PROC: 0XQBXZZ Repair Right Elbow Region, External Approach (ICD-10-PCS; 2024-09-29)
PROC: 0DTJ0ZZ Resection of Appendix, Open Approach (ICD-10-PCS; 2024-09-29)
PROC: 0DBB0ZZ Excision of Ileum, Open Approach (ICD-10-PCS; 2024-09-29)
PROC: 05HY33Z Insertion of Infusion Device into Upper Vein, Percutaneous Approach (ICD-10-PCS; 2024-09-30)
PROC: 3E03329 Introduction of Other Anti-infective into Peripheral Vein, Percutaneous Approach (ICD-10-PCS; 2024-10-01)
PROC: 0B113F4 Bypass Trachea to Cutaneous with Tracheostomy Device, Percutaneous Approach (ICD-10-PCS; 2024-10-07)
PROC: 0B928ZZ Drainage of Carina, Via Natural or Artificial Opening Endoscopic (ICD-10-PCS; 2024-10-07)
PROC: 0DH64UZ Insertion of Feeding Device into Stomach, Percutaneous Endoscopic Approach (ICD-10-PCS; 2024-10-07)
PROC: 3E0G76Z Introduction of Nutritional Substance into Upper GI, Via Natural or Artificial Opening (ICD-10-PCS; 2024-10-07)
DX: S36.893A Laceration of other intra-abdominal organs, initial encounter (principal); B37.7 Candidal sepsis; J96.01 Acute respiratory failure with hypoxia; R65.21 Severe sepsis with septic shock; I63.9 Cerebral infarction, unspecified; S32.502A Unspecified fracture of left pubis, initial encounter for closed fracture; S32.501A Unspecified fracture of right pubis, initial encounter for closed fracture; S32.10XA Unspecified fracture of sacrum, initial encounter for closed fracture; S32.019A Unspecified fracture of first lumbar vertebra, initial encounter for closed fracture; J98.11 Atelectasis; N17.9 Acute kidney failure, unspecified; E87.21 Acute metabolic acidosis; J93.9 Pneumothorax, unspecified; I47.10 Supraventricular tachycardia, unspecified; E87.0 Hyperosmolality and hypernatremia; E87.1 Hypo-osmolality and hyponatremia; I67.82 Cerebral ischemia; D62 Acute posthemorrhagic anemia; I13.0 Hypertensive heart and chronic kidney disease with heart failure and stage 1 through stage 4 chronic kidney disease, or unspecified chronic kidney disease; Z66 Do not resuscitate; Z51.5 Encounter for palliative care; S36.892A Contusion of other intra-abdominal organs, initial encounter; R57.8 Other shock; E80.6 Other disorders of bilirubin metabolism; I70.1 Atherosclerosis of renal artery; D69.6 Thrombocytopenia, unspecified; S51.011A Laceration without foreign body of right elbow, initial encounter; E88.09 Other disorders of plasma-protein metabolism, not elsewhere classified; N18.9 Chronic kidney disease, unspecified; I48.0 Paroxysmal atrial fibrillation; Z79.899 Other long term (current) drug therapy; Z79.82 Long term (current) use of aspirin; R45.1 Restlessness and agitation; I69.328 Other speech and language deficits following cerebral infarction; S61.411A Laceration without foreign body of right hand, initial encounter; S36.899A Unspecified injury of other intra-abdominal organs, initial encounter; K66.0 Peritoneal adhesions (postprocedural) (postinfection); S00.81XA Abrasion of other part of head, initial encounter; S40.812A Abrasion of left upper arm, initial encounter; S40.811A Abrasion of right upper arm, initial encounter; S80.812A Abrasion, left lower leg, initial encounter; S80.811A Abrasion, right lower leg, initial encounter; D63.1 Anemia in chronic kidney disease; Z90.49 Acquired absence of other specified parts of digestive tract; N20.0 Calculus of kidney; S30.22XA Contusion of scrotum and testes, initial encounter; Z86.16 Personal history of COVID-19; F17.220 Nicotine dependence, chewing tobacco, uncomplicated; N43.3 Hydrocele, unspecified; K29.70 Gastritis, unspecified, without bleeding; K76.9 Liver disease, unspecified; Z98.890 Other specified postprocedural states; Z92.21 Personal history of antineoplastic chemotherapy; Z85.819 Personal history of malignant neoplasm of unspecified site of lip, oral cavity, and pharynx; Z85.038 Personal history of other malignant neoplasm of large intestine; V89.2XXA Person injured in unspecified motor-vehicle accident, traffic, initial encounter; Y92.410 Unspecified street and highway as the place of occurrence of the external cause; R42 Dizziness and giddiness; R29.701 NIHSS score 1
CPT/HCPCS: 31500; 36415; 36416; 36430; 36600; 51702; 70450; 70486; 70498; 70551; 71045; 71260; 72125; 72170; 74018; 74174; 74176; 74177; 74250; 76870; 80048; 80053; 80076; 80306; 80307; 81001; 82248; 82550; 82805; 83010; 83615; 83690; 83735; 83930; 83935; 84100; 84300; 84478; 84484; 85025; 85046; 85049; 85300; 85362; 85384; 85610; 85730; 86850; 86900; 86901; 87040; 87070; 87077; 87086; 87205; 88305; 88307; 93005; 93010; 93306; 93976; 94002; 94003; 94760; 96365; 96374; 96375; 97139; A4649; B4087; G0390; J0165; J0169; J0282; J0360; J0665; J1100; J1644; J1940; J2060; J2248; J2250; J2270; J2405; J2470; J2543; J2704; J2765; J3010; J3475; J3480; J7030; J7042; J7070; J7120; P9016; P9035; P9047; P9048; P9059; Q9963; Q9967